=== PATIENT | male | born 1990 | race Hispanic/Latino ===

== ENCOUNTER 2021-07-07 09:47 | Emergency (ER) | payer SELFPAY ==
[2021-07-07] MEDS ORDERED: ZOFRAN4 MG PO (11:27)
[2021-07-07] MEDS ORDERED: MELOXICAM7.5 MG PO (11:27)
[2021-07-07] MEDS ORDERED: FLOMAX0.4 MG PO (11:27)
[2021-07-07] MEDS ORDERED: HYDROCODON-ACE1 EA10 PO (11:27)
== END 2021-07-07 13:50 | disposition home or self-care (01) ==
LOC: ED 09:47
DX: N13.2 Hydronephrosis with renal and ureteral calculous obstruction (principal)
CPT/HCPCS: 74176; 80053; 81001; 85025; 96374; 96375; 96376; 99284-25; J1170; J1885; J2405; J7030

== ENCOUNTER 2021-09-20 21:41 | Emergency (ER) | payer OTHER ==
[~2021-09-20] VITALS: Ht 177.8 cm; Wt 97.5 kg
[~2021-09-20 21:41] MED LIST: FLOMAX0.4 MG PO; HYDROCODON-ACE1 EA10 PO; MELOXICAM7.5 MG PO; ZOFRAN4 MG PO
[2021-09-20] MEDS ORDERED: [UNRECOGNIZED DRUG - REMARK] (22:49)
[2021-09-21] MEDS ORDERED: HYDROCODON-ACE1 EA10 PO (01:25)
[2021-09-21] MEDS ORDERED: ZOFRAN4 MG PO (01:25)
== END 2021-09-21 01:43 | disposition home or self-care (01) ==
LOC: ED 21:41
DX: N13.2 Hydronephrosis with renal and ureteral calculous obstruction (principal)
CPT/HCPCS: 74177; 80053; 81001; 83690; 85025; 96375; 99284-25; A9270; J1170; J2405; J7030; Q9967